=== PATIENT | male | born 1955 | race Caucasian/White ===

== ENCOUNTER 2019-08-17 22:30 | Observation (INO) ==
[2019-08-17 22:52] LABS: Hematocrit 51.3 % (42.0-52.0); Hemoglobin 16.7 gm/dL (13.5-18.0); Mean Cell Volume 91.8 fl (78-100); Mean Corpuscular Hemoglobin 29.9 pg (27-31); Mean Corpuscular Hgb Conc 32.6 g/dl (32-36); Mean Platelet Volume 9.2 fl (8-11.3); Neutrophil # 2.8 K/mm3 (1.3-6.0); Neutrophil % 47.2 % (42-75.0); Platelet Count 187 K/mm3 (150-450); Red Blood Count 5.59 M/mm3 (4.7-6.0); Red Cell Distribution Width 14.1 % (11.5-14.0); White Blood Count 5.9 K/mm3 (4.0-10.5)
[2019-08-17 23:09] LABS: Albumin * 3.5 gm/dl (3.4-5.0); BUN/Creatinine Ratio 10.4 (9.0-21.6); Bilirubin, Total 0.4 mg/dL (0.0-1.1); Ca. Corrected For Albumin 8.8 mg/dL (8.4-10.2); Calcium * 8.7 mg/dL (7.9-10.9); Total Protein 6.7 gm/dL (6.2-8.2)
[2019-08-17 23:10] LABS: Troponin I 0.043 ng/mL (0.00-0.10)
--- NOTE | 2019-08-17 23:17 | ERNOTE ---
Chest Pain/Cardiac HPI Chief Complaint: Chest Pain Time Seen by Provider: 08/17/19 22:58 Source: patient Exam Limitations: no limitations Immunizations: IMMUNIZATION HX Immunizations Up to Date Yes History of Influenza Vaccine Yes Hx Pneumococcal Vaccination No Allergies/Adverse Reactions: Allergies No Known Allergies Allergy (Verified 08/17/19 22:38) Home Medications: HOME MEDICATIONS Testosterone [Androgel] 5 gm TD DAILY 03/19/17 [Last Taken Unknown] Nitroglycerin 0.4 mg SUBLINGUAL ONCE #20 tab.subl 07/23/19 [Last Taken Unknown] losartan 50 mg tablet 50 mg PO DAILY #90 tab 07/31/19 [Last Taken Unknown] Narrative: Patient states he been having some chest pain off and on lately usually early in the morning when he is walking his dog. 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 He has had both a treadmill stress test and a stress echo where minimal changes were found not expected to be relevant. He states the web analytics specialist did say if he continued to have symptoms they would have to do an angiogram to rule out any underlying arterial stenosis. Today he was walking and had some thoracic pain that radiated into his left chest. He went to get a nitro and found his bottle of nitro was empty. He continued to wait for approximately 90 minutes to see if the chest pain would go away, it did not. Timing: intermittent Severity/Quality: moderate Location: back, left chest Nitro Today/Relief: no nitro taken today Aspirin Treatment Today: provided at home - 8-81 mg tablets Review of Systems - Review of Systems Constitutional: Absent: recent illness, fever EYE: Absent: vision changes ENT: Absent: nose congestion, nasal drainage Respiratory: Absent: shortness of breath, cough Cardiology: Present: See HPI, edema - Mild to has been consistent lately Gastrointestinal/Abdominal: Absent: nausea Musculoskeletal: Present: See HPI, back pain Skin: Absent: rash Neurological: Absent: dizziness/light-headedness Endocrine: Absent: excessive sweating Medical History (Last Reviewed 08/17/19 @ 23:16 by Anders Patterson DO) Chest pain Bronchitis Right foot strain Right shoulder strain Surgical History: Surgical History (Last Reviewed 08/17/19 @ 23:16 by Anders Patterson DO) History of repair of rotator cuff Family History: Family History (Last Reviewed 08/17/19 @ 23:16 by Anders Patterson DO) Mother CHF (congestive heart failure) Social History: (Last Reviewed 08/17/19 @ 23:16 by Anders Patterson DO) Social History: adopted: No Marital status: household members: none number of children: 2 current occupational status: employed current occupation: [employer] current occupational exposures/hazards: Yes Highest education level completed: Associate degree: occupat Tobacco: Smoking Status: Never smoker Alcohol: alcohol intake: never Substance Use: substance use type: does not use Tanisha/Sabianist: special tanisha needs: No Physical Exam - Physical Exam General Appearance: Present: wd/wn, alert, no apparent distress Head Exam: Present: normal inspection, no evidence of injury Neck: Present: normal inspection, nontender, supple Respiratory: Present: no respiratory distress, normal breath sounds, chest nontender, lungs clear Cardiovascular/Chest: Present: regular rate, rhythm, no murmur Gastrointestinal/Abdominal: Present: normal bowel sounds, nontender, nondistended, soft Back Exam: Present: normal inspection, normal range of motion, no vertebral tenderness Extremity Exam: Present: normal inspection, normal range of motion, extremity edema - +1 bilaterally. Neurological Exam: Present: alert, oriented, normal mood/affect, no motor/sensory deficits Skin Exam: Present: normal color, warm/dry Lymphatic Exam: Present: no adenopathy Progress - Results and Orders Patient's Lab Results:: I have reviewed the patient's lab results. Results and Orders: Laboratory Tests 08/17/19 08/17/19 08/18/19 22:50 22:50 01:30 WBC 5.9 Hgb 16.7 Hct 51.3 Plt Count 187 Sodium 138 Potassium 4.0 Chloride 103 Carbon Dioxide 30.0 BUN 14 Creatinine 1.34 Est GFR (Non-Af Amer) 57 L D Random Glucose 162 H Calcium 8.7 Total Bilirubin 0.4 AST 24 ALT 46 Alkaline Phosphatase 112 Troponin I 0.043 0.088 - Vital Signs Patient's Vital Signs:: I have reviewed the patient's vital signs. Vital Signs: Vital Signs 08/17/19 22:34 08/17/19 22:49 Temperature 36.8 C Pulse Rate 71 73 Respiratory Rate 19 Blood Pressure 162/80 H O2 Sat by Pulse Oximetry 92 L - EKG EKG #1 EKG: NSR, no ST T wave changes EKG read: Interp. by me - X-Ray X-Ray #1 X-Ray: chest Interpretation: Interp. by me X-ray Comments: No infiltrate or effusions. Some mild vascular congestion without pulmonary edema no pneumothorax. - Progress/Reassessment Chief Complaint: Chest Pain Progress:: Improved Progress Note-Subjective: 08/18/19 02:[address] Gibbons he agrees with observation admission for rule out MD. Departure Clinical Impression: Chest pain Qualifiers: Chest pain type: unspecified Qualified Code(s): R07.9 - Chest pain, unspecified - Departure Disposition: Still a patient Condition: Good
[2019-08-18] MEDS ORDERED: KETOROLAC TROMETHAMINE 60 MG/2 ML VIAL IM ONE (01:36)
--- NOTE | 2019-08-18 08:35 | HP ---
Chief Complaint - Chief Complaint Date of Service: 08/18/19 Time of Service: 08:01 Chief Complaint: Back and chest pressure History of Present Illness: Esau is a 64 yo male with symptoms of chest pressure off and on for the past month with exertion. He has had a regular treadmill stress test and a stress echo that other than thickened little and elevated blood pressure were within normal limits. He has been started on blood pressure medications and has been given nitro to take at home. He reports the nitro helps with his chest pain but last night he ran out of nitro. He was having Mid to upper back pressure of squeezing nature that radiated to his chest and left shoulder. He did not have any nitro to take so he took 7 baby aspirin and came to the ER. Initial evaluation was negative for acute change. Troponin was 0.04. He had a 3 hour repeat troponin that was a little elevated at 0.08. Chest xray showed no acute change. Medical History (Last Reviewed 08/18/19 @ 03:50 by Luh Julio RN) Chest pain Bronchitis Right foot strain Right shoulder strain Surgical History: Surgical History (Last Reviewed 08/18/19 @ 03:50 by Luh Juilo RN) History of repair of rotator cuff Family History: Family History (Last Reviewed 08/18/19 @ 03:50 by Luh Julio RN) Mother CHF (congestive heart failure) Social History: (Last Reviewed 08/18/19 @ 03:50 by Luh Julio RN) Social History: adopted: No Marital status: household members: none number of children: 2 current occupational status: employed current occupation: [employer] current occupational exposures/hazards: Yes Highest education level completed: Associate degree: occupat Tobacco: Smoking Status: Never smoker Alcohol: alcohol intake: never Substance Use: substance use type: does not use Tanisha/Worship: special tanisha needs: No Review Of Systems (GEN) - Review of Systems Generalized/Overall Review: Absent: Weakness, Chills, Fever EENTM: Present: No Symptoms Reported Respiratory: Absent: Cough, Shortness of Breath Cardiac: Present: Chest Pain. Absent: Edema, Palpitations, Syncope Abdominal: Absent: Nausea, Vomiting Genitourinary: Present: No Symptoms Reported Musculoskeletal: Present: Back Pain Neurological: Absent: Anxiety, Depressed Skin: Present: No Symptoms Reported Immunizations: IMMUNIZATION HX Immunizations Up to Date Yes History of Influenza Vaccine Yes Hx Pneumococcal Vaccination No Allergies/Adverse Reactions: Allergies Allergy/AdvReac Type Severity Reaction Status Date / Time No Known Allergies Allergy Verified 08/17/19 22:38 Home Medications: HOME MEDICATIONS Testosterone [Androgel] 5 gm TD DAILY 03/19/17 [Last Taken Unknown] Nitroglycerin 0.4 mg SUBLINGUAL ONCE #20 tab.subl 07/23/19 [Last Taken Unknown] losartan 50 mg tablet 50 mg PO DAILY #90 tab 07/31/19 [Last Taken Unknown] Exam - Exam Vital Signs: Vital Signs - Last Taken Temp 37.0 C 08/18/19 06:24 Pulse 70 08/18/19 06:24 Resp 16 08/18/19 06:24 BP 153/58 H 08/18/19 06:24 Pulse Ox 96 08/18/19 06:24 Constitutional: Present: Alert, Oriented x3, Cooperative, Morbidly obese ENT Exam: Present: hearing grossly normal Eye Exam: bilateral eye: normal inspection Respiratory: Present: lungs clear, normal breath sounds Cardiovascular/Chest: Present: regular rate, rhythm, no murmur Peripheral Pulses: radial (R): 2+, radial (L): 2+ Abdomen: Present: Normal bowel sounds, soft, nontender, nondistended Skin Exam: Present: normal color, warm/dry, no cyanosis Appearance: Present: appropriate appearance, appropriate insight Eye contact: Present: cooperative, good eye contact, normal speech Thoughts: Present: normal thought pattern, no apparent hallucination Diagnostic Studies: Abnormal Lab Results 08/17/19 08/17/19 08/18/19 Range/Units 22:50 22:50 05:35 RDW 14.1 H (11.5-14.0) % Monocytes % 10.2 H (0.0-9) % Est GFR (Non-Af Amer) 57 L D (60-130) mL/min Random Glucose 162 H (70-110) mg/dL Troponin I 0.285 H* (0.00-0.10) ng/mL Laboratory Results WBC 5.9 K/mm3 (4.0-10.5) 08/17/19 22:50 RBC 5.59 M/mm3 (4.7-6.0) 08/17/19 22:50 Hgb 16.7 gm/dL (13.5-18.0) 08/17/19 22:50 Hct 51.3 % (42.0-52.0) 08/17/19 22:50 MCV 91.8 fl (78-100) 08/17/19 22:50 MCH 29.9 pg (27-31) 08/17/19 22:50 MCHC 32.6 g/dl (32-36) 08/17/19 22:50 RDW 14.1 % (11.5-14.0) H 08/17/19 22:50 Plt Count 187 K/mm3 (150-450) 08/17/19 22:50 MPV 9.2 fl (8-11.3) 08/17/19 22:50 Immature Gran % (Auto) 0.30 % (0.001-0.429) 08/17/19 22:50 Immature Gran # (Auto) 0.02 K/mm3 (0.000-0.0310) 08/17/19 22:50 Neutrophils % 47.2 % (42-75.0) 08/17/19 22:50 Lymphocytes % 39.4 % (20-51) 08/17/19 22:50 Monocytes % 10.2 % (0.0-9) H 08/17/19 22:50 Eosinophils % 2.4 % (0.0-3.0) 08/17/19 22:50 Basophils % 0.5 % (0.0-1.0) 08/17/19 22:50 Nucleated RBC % 0.0 k/mm3 (0-1) 08/17/19 22:50 Neutrophils # 2.8 K/mm3 (1.3-6.0) 08/17/19 22:50 Lymphocytes # 2.32 k/mm3 (1.5-3.5) 08/17/19 22:50 Monocytes # 0.6 k/mm3 (0.0-1.0) 08/17/19 22:50 Eosinophils # 0.1 k/mm3 (0.0-0.7) 08/17/19 22:50 Absolute Basophils 0.0 k/mm3 (0.0-0.1) 08/17/19 22:50 Sodium 138 mmol/L (132-142) 08/17/19 22:50 Plasma Sodium 139 mmol/L (130-142) 08/17/19 22:50 Potassium 4.0 mmol/L (3.4-4.6) 08/17/19 22:50 Chloride 103 mmol/L (97-106) 08/17/19 22:50 Carbon Dioxide 30.0 mmol/L (24-32.6) 08/17/19 22:50 Anion Gap 9.0 mmol/L (6.8-13.8) 08/17/19 22:50 BUN 14 mg/dL (6-23) 08/17/19 22:50 Creatinine 1.34 mg/dL (0.4-1.4) 08/17/19 22:50 Est GFR (Non-Af Amer) 57 mL/min (60-130) L D 08/17/19 22:50 BUN/Creatinine Ratio 10.4 (9.0-21.6) 08/17/19 22:50 Random Glucose 162 mg/dL (70-110) H 08/17/19 22:50 Calcium 8.7 mg/dL (7.9-10.9) 08/17/19 22:50 Calcium Adj for Albumin 8.8 mg/dL (8.4-10.2) 08/17/19 22:50 Total Bilirubin 0.4 mg/dL (0.0-1.1) 08/17/19 22:50 AST 24 U/L (0-48) 08/17/19 22:50 ALT 46 U/L (19-67) 08/17/19 22:50 Alkaline Phosphatase 112 U/L (50-170) 08/17/19 22:50 Troponin I 0.285 ng/mL (0.00-0.10) H* 08/18/19 05:35 Total Protein 6.7 gm/dL (6.2-8.2) 08/17/19 22:50 Albumin 3.5 gm/dl (3.4-5.0) 08/17/19 22:50 Assessment/Plan - Narrative Narrative: Esau will be admitted to observation on telemetry. Will repeat troponin 6 hours after last. Expect 1 midnight stay. If troponin is rising will transfer to [facility] for NSTEMI, if troponin remains normal will plan to discharge with outpatient follow up. - Assessment/Plan (1) Chest pain Problem: Acute Qualifiers: Chest pain type: unspecified Qualified Code(s): R07.9 - Chest pain, unspecified
--- NOTE | 2019-08-18 08:41 | DS ---
Transfer Discharge Summary - Diagnosis(s)/Problems (1) NSTEMI (non-ST elevated myocardial infarction) Problem: Acute - Course Description of Stay: Esau is a 64yo male admitted for chest pain. Initial evaluation was negative for acute changes. His first troponin was 0.4, it was checked 3 hours later and jordyn to 0.8. He was admitted to observation on telemetry and troponin was rechecked 6 hours later and jordyn to 0.28. He is feeling a little better but still feels a little tightness below his sternum. Blood pressure has been mildly elevated near 150/80. After receiving the third Troponin I discussed case with Dr. Chua (Cardiology - [facility]) who is familiar with Mr. Perez from outpatient cardiology clinic. He request that he be transfer to [facility] for cardiac catheterization today. Consultation Done:: Dr. Chua ([facility] Cardiology) Procedures Performed: none - Results and Findings Results and Findings: Laboratory Results - last 24 hr 08/17/19 08/17/19 08/18/19 22:50 22:50 01:30 WBC 5.9 RBC 5.59 Hgb 16.7 Hct 51.3 MCV 91.8 MCH 29.9 MCHC 32.6 RDW 14.1 H Plt Count 187 MPV 9.2 Immature Gran % (Auto) 0.30 Immature Gran # (Auto) 0.02 Neutrophils % 47.2 Lymphocytes % 39.4 Monocytes % 10.2 H Eosinophils % 2.4 Basophils % 0.5 Nucleated RBC % 0.0 Neutrophils # 2.8 Lymphocytes # 2.32 Monocytes # 0.6 Eosinophils # 0.1 Absolute Basophils 0.0 Sodium 138 Plasma Sodium 139 Potassium 4.0 Chloride 103 Carbon Dioxide 30.0 Anion Gap 9.0 BUN 14 Creatinine 1.34 Est GFR (Non-Af Amer) 57 L D BUN/Creatinine Ratio 10.4 Random Glucose 162 H Calcium 8.7 Calcium Adj for Albumin 8.8 Total Bilirubin 0.4 AST 24 ALT 46 Alkaline Phosphatase 112 Troponin I 0.043 0.088 Total Protein 6.7 Albumin 3.5 08/18/19 05:35 WBC RBC Hgb Hct MCV MCH MCHC RDW Plt Count MPV Immature Gran % (Auto) Immature Gran # (Auto) Neutrophils % Lymphocytes % Monocytes % Eosinophils % Basophils % Nucleated RBC % Neutrophils # Lymphocytes # Monocytes # Eosinophils # Absolute Basophils Sodium Plasma Sodium Potassium Chloride Carbon Dioxide Anion Gap BUN Creatinine Est GFR (Non-Af Amer) BUN/Creatinine Ratio Random Glucose Calcium Calcium Adj for Albumin Total Bilirubin AST ALT Alkaline Phosphatase Troponin I 0.285 H* Total Protein Albumin - Medications Medications: Active Medications Discontinued Medications Ketorolac Tromethamine (Toradol) 60 mg IM ONCE ONE Stop: 08/18/19 01:37 Last Admin: 08/18/19 01:40 Dose: 60 mg Documented by: - Disposition Disposition: Home self-care Condition: Fair Discharge Date: 08/18/19 Discharge Time: 08:40
[2019-08-18 09:11] VITALS: BP 152/78
== END 2019-08-18 09:25 | disposition short-term general hospital (02) ==
LOC: ER 22:30 → MS 22:30
PROVIDERS: ADMIT Family Medicine; ATTEND Family Medicine
DX: I21.4 Non-ST elevation (NSTEMI) myocardial infarction
CPT/HCPCS: 36415; 71020; 71046; 80053; 84484; 85025; 93005; 96372; 99284; 99285; G0378

== ENCOUNTER 2019-11-28 11:45 | Observation (INO) ==
[2019-11-28] MEDS ORDERED: PIPERACILLIN SODIUM/TAZOBACTAM 3.375 GM in DEXTROSE 5 % IN WATER 100 ML IV ONE ×2 (12:46)
[2019-11-28] MEDS ORDERED: VANCOMYCIN/WATER FOR INJ (PEG) 1 GM/200 ML BAG IV ONE (12:46)
--- NOTE | 2019-11-28 13:08 | ERNOTE ---
Lower Extremity HPI - Narrative Date of Service: 11/28/19 - General Lower Extremities Pain: ankle: right Time Seen by Provider: 11/28/19 12:30 Source: patient Exam Limitations: no limitations - Immun/Allergies/Home Medications Immunizations: IMMUNIZATION HX Immunizations Up to Date Yes History of Influenza Vaccine Yes Hx Pneumococcal Vaccination No Allergies/Adverse Reactions: Allergies Allergy/AdvReac Type Severity Reaction Status Date / Time No Known Allergies Allergy Verified 11/28/19 11:50 Home Medications: HOME MEDICATIONS Testosterone [Androgel] 5 gm TD DAILY 03/19/17 [Last Taken Unknown] Nitroglycerin 0.4 mg SUBLINGUAL ONCE #20 tab.subl 07/23/19 [Last Taken Unknown] losartan 50 mg tablet 50 mg PO DAILY #90 tab 07/31/19 [Last Taken Unknown] Glucos Sul 2Kcl/MSM/Chond/C/Mn [Glucosamine Chondroitin Cap] 08/25/19 [Last Taken Unknown] Amoxicillin 875 mg PO BID #20 tab 11/25/19 [Last Taken Unknown] - History of Present Illness Narrative: 64-year-old male presents with acute worsening right lower leg injury with significant signs of infection. Patient was seen approximately 3 days ago in the ER for right lower leg swelling and redness. Was treated with antibiotics at this time and given outpatient amoxicillin. Patient notes that the redness is extended beyond the marked lines he is noted no significant provement in symptoms. He denies any significant pain, full motion however he does note worsening lower leg edema. He said no other significant traumas to this leg. He does note that they found a foreign body on previous x-rays, unsure when this foreign body was introduced. Patient notes initially approximately 7 days ago he was going to [facility] and broke a bottle over his leg with a significant abras ion and noted this infection began a few days after that. He does note that he has mild shortness of breath possibly slightly worsened baseline. He has been COVID swab pending result at this time. He denies any other acute symptoms including cough, fever, acute contacts. He has no significant trauma or falls at this time. He denies any other significant injuries or acute complaints. Rates his pain is 0/10, no significant radiating symptoms or modifying factors, only home intervention was the antibiotics prescribed by the ED 3 days previous. Review of Systems - Review of Systems Constitutional: Absent: fever, weakness EYE: Absent: blurred vision, double vision ENT: Absent: nose congestion, sore throat Respiratory: Present: shortness of breath. Absent: cough Cardiology: Present: palpitations - chronic. Absent: chest pain, syncope Genitourinary: Absent: pain, hematuria Musculoskeletal: Absent: back pain, joint pain Skin: Present: lesions - See HPI Neurological: Absent: dizziness/light-headedness, weakness, numbness, tingling Endocrine: Present: no symptoms reported Hematologic/Lymphatic: Present: no symptoms reported Psych: Present: no symptoms reported All Other Systems: All systems neg except as marked Medical History (Last Reviewed 11/28/19 @ 12:50 by SHANNON Scott) Chest pain (Acute) Onset Date: 08/18/19 NSTEMI (non-ST elevated myocardial infarction) (Acute) Onset Date: 08/18/19 CAD (coronary artery disease) Hypercholesteremia Hypertension Bronchitis Right foot strain Right shoulder strain Chest pain Surgical History: Surgical History (Last Reviewed 11/28/19 @ 12:50 by SHANNON Scott) History of coronary artery stent placement History of repair of rotator cuff Family History: Family History (Last Reviewed 11/28/19 @ 12:50 by SHANNON Scott) Mother CHF (congestive heart failure) Social History: (Last Reviewed 11/28/19 @ 12:50 by SHANNON Scott) Social History: adopted: No Marital status: household members: none number of children: 2 current occupational status: employed current occupation: [employer] current occupational exposures/hazards: Yes Highest education level completed: Associate degree: occupat Tobacco: Smoking Status: Never smoker Alcohol: alcohol intake: never Substance Use: substance use type: does not use Tanisha/Evangelical: special tanisha needs: No Physical Exam - Physical Exam General Appearance: Present: wd/wn, alert, no apparent distress Head Exam: Present: normal inspection, no evidence of injury Eye Exam: Normal inspection: bilateral, EOMI: bilateral Ears, Nose, Throat: Present: normal ENT inspection Neck: Present: normal inspection Respiratory: Present: no respiratory distress, no accessory muscle use, wheezing - On expiration mild Cardiovascular/Chest: Present: regular rate, rhythm Gastrointestinal/Abdominal: Present: normal bowel sounds, nontender, nondistended, soft Back Exam: Present: normal range of motion Extremity Exam: Present: normal except - - 1+ pitting edema of the right lower extremity, diffuse erythematous region anteriorly of the lower leg, significantly outside the previously marked region, no significant wounds no fluctuant area indicating an abscess Neurological Exam: Present: alert, oriented, normal mood/affect, no motor/sensory deficits Skin Exam: Present: other - Erythematous area over the right lower leg anteriorly consuming a majority of the lower leg, well beyond marked region previously Progress - Date and Time Seen: Date and Time: 11/28/19 12:53 Patient returns to the ED with significant worsening of right lower leg erythema and edema. Patient has significant cellulitis looking region on his right lower extremity anteriorly. It is significantly worsened since being discharged with p.o. antibiotics. Based on this we will repeat lab cultures for baseline markers however have discussed with patient he will most likely be admitted for observation and continued monitoring with IV antibiotics. Will wait to obtain patient's lab results, noted on previous x-ray there was a foreign body however this is age undetermined. Due to patient's significant increase in overall symptoms as well as presentation concern for failure of outpatient antibiotics and would recommend this further treatment. Will contact internal medicine provider to discuss the admittance of this patient. 11/28/19 13:24 Discussed patient's case with medicine provider, due to patient's acute clinical worsening as well as an upward trend in his labs within the normal range still would recommend IV antibiotics with observation in the hospital to monitor for clinical changes in his overall picture. Patient will be rapid COVID tested prior to his admission. Patient has been given initial doses starting with vancomycin and Zosyn this treatment can be tailored per the medicine providers discretion. Patient is acutely stable at this time, have discussed this case in detail with the medicine provider who agreed to proceed with this option. Pending result of COVID test patient will be admitted for observation and further IV antibiotics. 11/28/19 14:25 As COVID test was negative and he will be admitted for observation to the inpatient unit for further antibiotic care and follow-up care with medicine team. - Results and Orders Patient's Lab Results:: I have reviewed the patient's lab results. Results and Orders: White count trending upward compared to lab values 3 days prior, COVID negative, elevated CRP - Vital Signs Patient's Vital Signs:: I have reviewed the patient's vital signs. Vital Signs: Vital Signs 09/19/20 11:45 Temperature 37.2 C Pulse Rate 94 Respiratory Rate 16 Blood Pressure 151/82 H O2 Sat by Pulse Oximetry 94 - Progress/Reassessment Chief Complaint: Lower Extremity Pain/ Injury Progress:: Unchanged Plan - Plan Plan: Admit for observation with continued IV antibiotic Departure Clinical Impression: Cellulitis of leg, right - Departure Disposition: Still a patient Condition: Stable
[2019-11-28 13:09] LABS: Hematocrit 45.4 % (42.0-52.0); Hemoglobin 14.6 gm/dL (13.5-18.0); Mean Corpuscular Hemoglobin 29.3 pg (27-31); Mean Corpuscular Hgb Conc 32.2 g/dl (32-36); Mean Platelet Volume 9.5 fl (8-11.3); Neutrophil # 7.2 K/mm3 (1.3-6.0); Platelet Count 175 K/mm3 (150-450); Red Blood Count 4.99 M/mm3 (4.7-6.0); Red Cell Distribution Width 13.8 % (11.5-14.0); White Blood Count 9.7 K/mm3 (4.0-10.5)
[2019-11-28 13:21] LABS: Albumin * 2.8 gm/dl (3.4-5.0); Anion Gap 11.8 mmol/L (6.8-13.8); BUN/Creatinine Ratio 13.6 (9.0-21.6); Bilirubin, Total 0.4 mg/dL (0.0-1.1); Ca. Corrected For Albumin 9.1 mg/dL (8.4-10.2); Calcium * 8.5 mg/dL (7.9-10.9); Carbon Dioxide 24.9 mmol/L (24-32.6); Potassium 3.7 mmol/L (3.4-4.6); Total Protein 6.9 gm/dL (6.2-8.2)
[2019-11-28 13:22] LABS: CRP 14.3 mg/dL (0.0-0.9)
[2019-11-28] MEDS ORDERED: FLU VACC QS2020-21(6MOS UP)/PF 60 MCG/0.5 ML SYRINGE IM ONE (15:31)
[2019-11-28] MEDS ORDERED: NORMAL SALINE 1,000 ML IV ONE (19:21)
[2019-11-28] MEDS ORDERED: hydrALAZINE HCL 20 MG/ML VIAL IV PRN (19:31)
--- NOTE | 2019-11-28 19:31 | HP ---
Chief Complaint - Chief Complaint Date of Service: 11/28/19 Time of Service: : Chief Complaint: cellulitis History of Present Illness: 64-year-old male with history of CAD, hyperlipidemia, hypertension presented to the hospital after developing cellulitic infection on his right lower extremity roughly a week earlier. Patient was seen in our ER 3 days prior for the same infection was started on amoxicillin. Patient did not respond to the amoxicillin and so patient was given IV vancomycin and Zosyn due to worsening cellulitic infection of the right lower extremity. Initial outline for 3 days prior does show the cellulitis has spread in all directions from original tracing. It is nontender. It is warm to the touch. It was re-outlined again today in the ER. Patient's lab work was stable here with a normal white count, no left shift. He did have an elevated ESR and CRP as expected. His skin panel was appropriate. His vital signs are stable and is been afebrile. Patient brought in under observation. Medical History (Last Reviewed 11/28/19 @ 15:40 by Lisa Arceo RN) Chest pain (Acute) Onset Date: 08/18/19 NSTEMI (non-ST elevated myocardial infarction) (Acute) Onset Date: 08/18/19 CAD (coronary artery disease) Hypercholesteremia Hypertension Bronchitis Right foot strain Right shoulder strain Chest pain Surgical History: Surgical History (Last Reviewed 11/28/19 @ 15:40 by Lisa Arceo RN) History of coronary artery stent placement History of repair of rotator cuff Family History: Family History (Last Reviewed 11/28/19 @ 15:41 by Lisa Arceo RN) Mother CHF (congestive heart failure) Social History: (Last Reviewed 11/28/19 @ 15:41 by Lisa Arceo RN) Social History: adopted: No Marital status: household members: none number of children: 2 current occupational status: employed current occupation: [employer] current occupational exposures/hazards: Yes Highest education level completed: Associate degree: occupat Tobacco: Smoking Status: Never smoker Alcohol: alcohol intake: never Substance Use: substance use type: does not use Tanisha/Adventism: special tanisha needs: No Review Of Systems (GEN) - Review of Systems Generalized/Overall Review: Absent: Weakness, Chills, Fever EENTM: Present: No Symptoms Reported Respiratory: Present: No Symptoms Reported Cardiac: Present: No Symptoms Reported Abdominal: Present: No Symptoms Reported Musculoskeletal: Present: No Symptoms Reported Neurological: Present: No Symptoms Reported Skin: Present: Change in Color - Right lower extremity infection, outlined again Immunizations: IMMUNIZATION HX Immunizations Up to Date Yes History of Influenza Vaccine Yes Hx Pneumococcal Vaccination No Allergies/Adverse Reactions: Allergies Allergy/AdvReac Type Severity Reaction Status Date / Time No Known Allergies Allergy Verified 11/28/19 15:41 Home Medications: HOME MEDICATIONS Testosterone [Androgel] 5 gm TD QAM 03/19/17 [Last Taken Unknown] losartan 50 mg tablet 50 mg PO DAILY #90 tab 07/31/19 [Last Taken Unknown] Amoxicillin 875 mg PO BID #20 tab 11/25/19 [Last Taken Unknown] Amlodipine Besylate 5 mg PO DAILY 11/28/19 [Last Taken Unknown] Atorvastatin Calcium 80 mg PO DAILY 11/28/19 [Last Taken Unknown] Clopidogrel Bisulfate [Clopidogrel] 75 mg PO DAILY 11/28/19 [Last Taken Unknown] Naproxen [Naprosyn] 500 mg PO BID 11/28/19 [Last Taken Unknown] Nitroglycerin 0.4 mg SUBLINGUAL Q5MIN PRN 11/28/19 [Last Taken Unknown] Sildenafil Citrate 25 mg PO DAILY PRN 11/28/19 [Last Taken Unknown] Exam - Exam Vital Signs: Vital Signs - Last Taken Temp 38.1 C H 11/28/19 17:43 Pulse 87 11/28/19 17:43 Resp 20 11/28/19 17:43 BP 188/73 H 11/28/19 17:43 Pulse Ox 96 11/28/19 17:43 Constitutional: Present: Alert, Oriented x3, Well developed, No distress ENT Exam: Present: hearing grossly normal. Absent: nasal congestion, nasal drainage Eye Exam: bilateral eye: normal inspection, EOMI Neck: Present: non-tender, supple Respiratory: Present: lungs clear, normal breath sounds Cardiovascular/Chest: Present: normal peripheral pulses, regular rate, rhythm, no murmur Peripheral Pulses: dorsalis-pedis (R): 2+, dorsalis-pedis (L): 2+ Abdomen: Present: Normal bowel sounds, soft, nondistended Skin Exam: Present: other - Cellulitic infection covering majority of anterior lower extremity below the knee, some induration, nonfluctuant, erythematous and warm to the touch. Outlined. Absent: normal color Neurologic: Present: normal mood/affect. Absent: motor weakness, sensory deficit Eye contact: Present: cooperative, good eye contact, normal speech Thoughts: Present: normal thought pattern, normal mood /affect Diagnostic Studies: Abnormal Lab Results 11/28/19 11/28/19 11/28/19 Range/Units 13:00 13:00 13:00 Immature Gran % (Auto) 0.60 H (0.001-0.429) % Immature Gran # (Auto) 0.06 H (0.000-0.0310) K/mm3 Lymphocytes % 12.5 L (20-51) % Monocytes % 10.5 H (0.0-9) % Neutrophils # 7.2 H (1.3-6.0) K/mm3 Lymphocytes # 1.21 L (1.5-3.5) k/mm3 ESR 67 H (0-10) mm/hr Random Glucose 123 H (70-110) mg/dL C-Reactive Prot, Quant 14.3 H (0.0-0.9) mg/dL Albumin 2.8 L (3.4-5.0) gm/dl Laboratory Results WBC 9.7 K/mm3 (4.0-10.5) 11/28/19 13:00 RBC 4.99 M/mm3 (4.7-6.0) 11/28/19 13:00 Hgb 14.6 gm/dL (13.5-18.0) 11/28/19 13:00 Hct 45.4 % (42.0-52.0) 11/28/19 13:00 MCV 91.0 fl (78-100) 11/28/19 13:00 MCH 29.3 pg (27-31) 11/28/19 13:00 MCHC 32.2 g/dl (32-36) 11/28/19 13:00 RDW 13.8 % (11.5-14.0) 11/28/19 13:00 Plt Count 175 K/mm3 (150-450) 11/28/19 13:00 MPV 9.5 fl (8-11.3) 11/28/19 13:00 Immature Gran % (Auto) 0.60 % (0.001-0.429) H 11/28/19 13:00 Immature Gran # (Auto) 0.06 K/mm3 (0.000-0.0310) H 11/28/19 13:00 Neutrophils % 75.0 % (42-75.0) 11/28/19 13:00 Lymphocytes % 12.5 % (20-51) L 11/28/19 13:00 Monocytes % 10.5 % (0.0-9) H 11/28/19 13:00 Eosinophils % 1.2 % (0.0-3.0) 11/28/19 13:00 Basophils % 0.2 % (0.0-1.0) 11/28/19 13:00 Nucleated RBC % 0.0 k/mm3 (0-1) 11/28/19 13:00 Neutrophils # 7.2 K/mm3 (1.3-6.0) H 11/28/19 13:00 Lymphocytes # 1.21 k/mm3 (1.5-3.5) L 11/28/19 13:00 Monocytes # 1.0 k/mm3 (0.0-1.0) 11/28/19 13:00 Eosinophils # 0.1 k/mm3 (0.0-0.7) 11/28/19 13:00 Absolute Basophils 0.0 k/mm3 (0.0-0.1) 11/28/19 13:00 ESR 67 mm/hr (0-10) H 11/28/19 13:00 Sodium 136 mmol/L (132-142) 11/28/19 13:00 Plasma Sodium 136 mmol/L (130-142) 11/28/19 13:00 Potassium 3.7 mmol/L (3.4-4.6) 11/28/19 13:00 Chloride 103 mmol/L (97-106) 11/28/19 13:00 Carbon Dioxide 24.9 mmol/L (24-32.6) 11/28/19 13:00 Anion Gap 11.8 mmol/L (6.8-13.8) 11/28/19 13:00 BUN 14 mg/dL (6-23) 11/28/19 13:00 Creatinine 1.03 mg/dL (0.4-1.4) 11/28/19 13:00 Est GFR (Non-Af Amer) 77 mL/min (60-130) 11/28/19 13:00 BUN/Creatinine Ratio 13.6 (9.0-21.6) 11/28/19 13:00 Random Glucose 123 mg/dL (70-110) H 11/28/19 13:00 Calcium 8.5 mg/dL (7.9-10.9) 11/28/19 13:00 Calcium Adj for Albumin 9.1 mg/dL (8.4-10.2) 11/28/19 13:00 Total Bilirubin 0.4 mg/dL (0.0-1.1) 11/28/19 13:00 AST 48 U/L (0-48) 11/28/19 13:00 ALT 65 U/L (19-67) 11/28/19 13:00 Alkaline Phosphatase 130 U/L (50-170) 11/28/19 13:00 C-Reactive Prot, Quant 14.3 mg/dL (0.0-0.9) H 11/28/19 13:00 Total Protein 6.9 gm/dL (6.2-8.2) 11/28/19 13:00 Albumin 2.8 gm/dl (3.4-5.0) L 11/28/19 13:00 SARS-CoV-2 (PCR) Not detected (NotDetected) 11/28/19 13:18 Assessment/Plan - Narrative Narrative: Patient placed in observation due to presumed failed outpatient antibiotic treatment. I feel patient's initial treatment was more inappropriate with antibiotic choice than actually failed treatment. We will stop vancomycin and Zosyn and start him on IV clindamycin. Will reexamine the leg in the morning. Clindamycin is likely what he will be sent home on tomorrow. Lab work all normal, no need to repeat in the morning. Blood pressure slightly elevated at this time. Restarted his home meds. Will add IV hydralazine to be given PRN if systolic greater than 170. We will start him on normal saline at 125 an hour. No DVT prophylaxis needed, no SCDs due to patient comfort. Regular diet restarted. Chronic medications restarted. Nurse to call questions or concerns. - Assessment/Plan (1) Cellulitis of right lower leg Problem: Acute (2) Hypertension Problem: Acute (3) CAD (coronary artery disease) Problem: Acute (4) Hyperlipidemia Problem: Acute
[2019-11-28] MEDS ORDERED: ACETAMINOPHEN 500 MG TABLET PO PRN (20:05)
[2019-11-28] MEDS: NAPROXEN 500 MG TABLET PO SCH (20:21)
[2019-11-28] MEDS: CLINDAMYCIN IN 0.9 % SOD CHLOR 600 MG/50 ML BAG IV SCH (20:56)
[2019-11-29] MEDS: CLINDAMYCIN IN 0.9 % SOD CHLOR 600 MG/50 ML BAG IV SCH ×2 (03:42→11:46)
[2019-11-29] MEDS: NAPROXEN 500 MG TABLET PO SCH (08:31)
[2019-11-29] MEDS ORDERED: CLOPIDOGREL BISULFATE 75 MG TABLET PO SCH (09:00)
[2019-11-29] MEDS ORDERED: ROSUVASTATIN CALCIUM 20 MG TABLET PO SCH (09:00)
[2019-11-29] MEDS ORDERED: amLODIPine BESYLATE 5 MG TABLET PO SCH (09:00)
[2019-11-29] MEDS ORDERED: LOSARTAN POTASSIUM 50 MG TABLET PO SCH (09:00)
--- NOTE | 2019-11-29 10:51 | DS ---
(1) Cellulitis of right lower leg Problem: Acute (2) Hypertension Problem: Chronic (3) CAD (coronary artery disease) Problem: Chronic (4) Hyperlipidemia Problem: Chronic Date of Discharge:: 11/29/19 Hospital Course: 64-year-old male brought in for observation yesterday for right lower extremity cellulitis. Lab work and vitals were stable. Patient was started on Zosyn and vancomycin in the ER, this was switched over to IV clindamycin which he responded well to. There is significant regression of the infection from the borders that were outlined on his right lower extremity. Much less indurated. Nontender still. Patient made to be discharged home will continue 7 days of oral clindamycin. He will follow with his PCP in 1 week. Of note patient does have hypertension and is fairly well-controlled with his current regimen though I think the amlodipine is causing him to have swelling in his lower extremities. Will recommend he be switched to losartan hy drochlorothiazide and stop the amlodipine. We will discuss this with his PCP. Rest of his chronic medications were unchanged. The amoxicillin he was on was stopped. Clindamycin was sent to his pharmacy. Patient was in agreement the treatment plan, he was pleasant to care for and had no concerns upon discharge. Procedures Performed: none Results and Findings: Lab Pending Results 11/28/19 13:00: WBC 9.7, RBC 4.99, Hgb 14.6, Hct 45.4, MCV 91.0, MCH 29.3, MCHC 32.2, RDW 13.8, Plt Count 175, MPV 9.5, Immature Gran % (Auto) 0.60 H, Immature Gran # (Auto) 0.06 H, Neutrophils % 75.0, Lymphocytes % 12.5 L, Monocytes % 10.5 H, Eosinophils % 1.2, Basophils % 0.2, Nucleated RBC % 0.0, Neutrophils # 7.2 H, Lymphocytes # 1.21 L, Monocytes # 1.0, Eosinophils # 0.1, Absolute Basophils 0.0 11/28/19 13:00: Sodium 136, Plasma Sodium 136, Potassium 3.7, Chloride 103, Carbon Dioxide 24.9, Anion Gap 11.8, BUN 14, Creatinine 1.03, Est GFR (Non-Af Amer) 77, BUN/Creatinine Ratio 13.6, Random Glucose 123 H, Calcium 8.5, Calcium Adj for Albumin 9.1, Total Bilirubin 0.4, AST 48, ALT 65, Alkaline Phosphatase 130, C-Reactive Prot, Quant 14.3 H, Total Protein 6.9, Albumin 2.8 L 11/28/19 13:00: ESR 67 H 11/28/19 13:18: SARS-CoV-2 (PCR) Not detected Discharge Location: Home Disposition: Home self-care Condition: Good Discharge Activity: Activity as tolerated Discharge Diet: General/regular food Referrals: Harman Gibbons DO [Primary Care Provider] - One Week Prescriptions (Any new or edited meds): Clindamycin HCl [Cleocin HCl] 300 mg PO TID #21 cap Transmission Status: Pending to [facility] Complete Home Medications List: Complete Home Medication List: Testosterone [Androgel] 5 gm TD QAM 03/19/17 losartan 50 mg tablet 50 mg PO DAILY #90 tab 07/31/19 Amlodipine Besylate 5 mg PO DAILY 11/28/19 Atorvastatin Calcium 80 mg PO DAILY 11/28/19 Clopidogrel Bisulfate [Clopidogrel] 75 mg PO DAILY 11/28/19 Naproxen [Naprosyn] 500 mg PO BID 11/28/19 Nitroglycerin 0.4 mg SUBLINGUAL Q5MIN PRN 11/28/19 Sildenafil Citrate 25 mg PO DAILY PRN 11/28/19 Clindamycin HCl [Cleocin HCl] 300 mg PO TID #21 cap 11/29/19
[2019-11-29 11:03] VITALS: BP 152/75
== END 2019-11-29 13:10 | disposition home or self-care (01) ==
LOC: ER 11:45 → MS 11:45
PROVIDERS: ADMIT Family Medicine; ATTEND Family Medicine
DX: I10 Essential (primary) hypertension; I25.10 Atherosclerotic heart disease of native coronary artery without angina pectoris; E78.5 Hyperlipidemia, unspecified; L03.115 Cellulitis of right lower limb